=== PATIENT | female | born 1975 | race Caucasian/White ===

== ENCOUNTER 2023-10-28 12:19 | Emergency (ER) | payer MEDICAID ==
[~2023-10-28] VITALS: Ht 165.1 cm; Wt 49.9 kg
[2023-10-28 13:08] VITALS: BP_SYST 99; PULSE 70; RESP 20; TEMP 97.8; O2SAT 99
[2023-10-28 13:54] LABS: BILIRUBIN,URINE NEGATIVE (NEGATIVE); CLARITY/URINE CLEAR (CLEAR); COLOR,URINE YELLOW (YELLOW); GLUCOSE,URINE NEGATIVE (NEGATIVE); KETONES,URINE NEGATIVE (NEGATIVE); LEUKOCYTE ESTERASE ,URINE NEGATIVE (NEGATIVE); NITRITE, URINE NEGATIVE (NEGATIVE); PROTEIN URINE NEGATIVE (NEGATIVE); UROBILINOGEN,URINE 0.2 (0.2-1.0)
[2023-10-28 13:58] LABS: BLOOD, URINE TRACE (NEGATIVE)
[2023-10-28 14:16] LABS: BACTERIA,URINE None Seen /HPF (None Seen); RBC,URINE 0-3 /HPF (0-3); WBC,URINE NONE SEEN /HPF (0-3)
[2023-10-28 14:26] LABS: BASOPHILS % (AUTO) 0.5 % (0.0-2.0); EOSINOPHILS % (AUTO) 0.3 % (0.0-4.0); HEMATOCRIT 36.7 % (36-48); HEMOGLOBIN 12.5 g/dL (12.0-16.0); LYMPHOCYTES # (AUTO) 1.4 K/uL (1.0-5.5); LYMPHOCYTES % (AUTO) 33.3 % (20.5-51.5); MEAN CORPUSCULAR HEMOGLOBIN 33 pg (27-31); MEAN CORPUSCULAR HGB CONC 34 % (32-36); MEAN CORPUSCULAR VOLUME 95 fL (79.0-98.0); MONOCYTES # (AUTO) 0.2 K/uL (0.0-1.0); MONOCYTES % (AUTO) 4.9 % (1.7-9.3); NEUTROPHILS # (AUTO) 2.6 K/uL (1.8-7.7); PLATELET COUNT (AUTO) 143 K/uL (130-430); RED BLOOD CELL COUNT(AUTO) 3.86 MIL/uL (4.2-6.2); RED CELL DISTRIBUTION WIDTH 12.7 % (9.0-15.0); WHITE BLOOD COUNT (AUTO) 4.3 K/uL (4.8-10.8)
[2023-10-28] MEDS ORDERED: POTASSIUM CHLORIDE 20 MEQ/PKT PACKET ONE (14:28)
[2023-10-28 14:37] LABS: CALCIUM 8.8 mg/dL (8.4-11.0); CREATININE 0.72 mg/dL (0.55-1.30); POTASSIUM 3.6 mmol/L (3.5-5.1)
[2023-10-28 14:42] LABS: TOTAL BILIRUBIN 0.6 mg/dL (0.0-1.0); TOTAL PROTEIN, SERUM 7.5 g/dL (6.4-8.3)
[2023-10-28] MEDS: MECLIZINE HCL 25 MG TABLET (ANITVERT) PO ONE (15:17)
[2023-10-28 16:36] VITALS: BP_SYST 92; PULSE 88; RESP 17; TEMP 97.6; O2SAT 97
[2023-10-28] MEDS ORDERED: P-EP-92 PO (16:36)
[2023-10-28] MEDS ORDERED: MECL-109 PO (16:36)
== END 2023-10-28 16:43 | disposition home or self-care (01) ==
LOC: SED 12:19
DX: H81.399 Other peripheral vertigo, unspecified ear (principal); R11.0 Nausea; R51.9 Headache, unspecified; Z79.899 Other long term (current) drug therapy
CPT/HCPCS: 36415; 70450-TC; 80053; 81000; 81001; 81015; 85025; 93005; 99284; J8597